=== PATIENT | male | born 1945 | race Caucasian/White ===

== ENCOUNTER 2017-07-20 23:00 | Inpatient (IN) | payer OTHER ==
[~2017-07-20] VITALS: Ht 170.2 cm; Wt 112.5 kg
--- NOTE | 2017-07-20 23:08 | ED DYSPNEA/ASTHMA COMPLAINT ---
History of Present Illness General Chief Complaint: Dyspnea (COPD, CHF, Other) Stated Complaint: BIBA SOB Source: patient, old records, EMS Exam Limitations: no limitations Vital Signs & Intake/Output Vital Signs & Intake/Output Vital Signs Date Time Temp Pulse Resp B/P B/P Pulse O2 O2 Flow FiO2 Mean Ox Delivery Rate 07/21 0157 100.4 90 20 134/63 93 Nasal 3.0L Cannula 07/21 0126 93 Nasal 3.0L Cannula 07/20 2335 97 Nasal 3.0L Cannula 07/20 231 94 Nasal 3.0L Cannula 07/20 2310 99.9 100 24 141/71 94 Nasal 3.0L Cannula ED Intake and Output 07/21 0000 07/20 1200 Intake Total 0 Output Total 0 Balance 0 Intake, Oral 0 Output, Urine 0 Allergies Coded Allergies: No Known Allergies (07/21/17) Triage Nurses Notes Reviewed? yes Onset: Abrupt Duration: day(s): (1), constant Timing: recent history Severity: moderate Activities at Onset: activity Prior Episodes/Possible Cause: no prior episodes Associated Symptoms: cough HPI: 71-year-old male with history of coronary artery disease hypertension presents to the ER for evaluation complaining of shortness of breath unable to catch his breath and wheezing for the past one day associated with a nonproductive cough for the past few days. He denies any fever chills chest pain. Patient has no underlying lung disease asthma he does not smoke. He quit smoking 2 months ago. No sick contacts no leg swelling. No modifying factors or associated symptoms otherwise. No hemoptysis. 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 see below for history Cardiovascular: CAD, hypertension, hyperlipidemia Surgical History Surgical History: non-contributory Psychosocial History Tobacco Use: Quit >30 days ago Family History Hx Contributory? No (Jadiel Rosenberg) Review of Systems Review of Systems Constitutional: Reports: see HPI. Comments Review of systems: See HPI, All other systems negative. Constitutional, no chills no fever, no malaise HEENT: no sore throat no congestion Cardiovascular: No chest pain , no palpitation Skin: no rashes, no change in skin Respiratory: dyspnea cough no sputum GI: No nausea no vomiting, no diarrhea : No dysuria No hematuria, no frequency Muscle skeletal: No joint pain, no back pain Neurologic: , no headache Psych: No stress Heme/endocrine: No bruising (Jadiel Rosenberg) Physical Exam Physical Exam General Appearance: well developed/nourished Respiratory: normal breath sounds, wheezing Comments: Well-developed well-nourished person in no acute distress HEENT: Normal EENT exam; PERRL, EOMI, HEAD is atraumatic. moist mucous membranes. Neck: Supple, normal range of motion Back: Full range of motion Cardiovascular: Regular rate and rhythms no murmurs rub Respiratory: Chest nontender.There were no bony deformities, no asymmetry. No respiratory distress. Patient speaking in full complete sentences. Wheezing in all lung parekh no rhonchi no rales Abdomen: Soft, nontender nondistended Extremity: No edema, full range of motion of extremities Neuro: Alert oriented x3, motor sensory normal, There were no obvious focal neurologic abnormalities. Skin: No appreciable rash on exposed skin, skin is warm and dry. Psych: Mood and affect is normal, memory and judgment is normal. Core Measures ACS in differential dx? Yes CVA/TIA Diagnosis No Sepsis Present: No Sepsis Focused Exam Completed? No (Jadiel Rosenberg) Progress Differential Diagnosis: asthma, AMI, bronchitis, CHF, COPD, musculoskeletal pain , pericarditis, pulmonary embolism, pneumonia, unstable angina Plan of Care: Orders Procedure Date/time Status Nothing by Mouth 07/21 B Active Patient Data 07/218 Active Saline Lock 07/21 127 Active Misc Message 07/21 127 Active ED Holding Orders 07/21 127 Active Admit to inpatient 07/21 0128 Active Vital Signs 07/21 0128 Active Code Status 07/21 0128 Active Add-on Test (ER Only) 07/21 0025 Active D-DIMER 07/20 2335 Complete B-TYPE NATRIURETIC PEP (BNP) 07/20 2335 Complete Add-on Test (ER Only) 07/20 2329 Active Telemetry/Criminal Defense Attorney 07/20 230 Active RAPID VIRAL INFLUENZA A 07/20 2306 Complete TROPONIN LEVEL 07/20 2306 Complete PROTHROMBIN TIME 07/20 2306 Complete COMPREHENSIVE METABOLIC PANEL 07/20 2306 Complete CBC WITHOUT DIFFERENTIAL 07/20 2306 Complete EKG 07/20 2306 Active Current Medications Sig/Antonio Start time Last Medication Dose Stop Time Status Admin Azithromycin 500 MG ONCE ONE 07/21 0130 AC 07/21 (Zithromax) 07/21 0229 0155 Dextrose/Water 250 ML (D5W) Laboratory Tests 07/20/17 2335: Anion Gap 15, Estimated GFR > 60, BUN/Creatinine Ratio 25.6 H, Glucose 128 H, Calcium 9.5, Total Bilirubin 0.5, AST 28, ALT 26, Alkaline Phosphatase 58, Troponin I < 0.01, Jhi-H-Kwvopxlyxvl Pept 76.4, Total Protein 7.1, Albumin 4.3, Globulin 2.8, Albumin/Globulin Ratio 1.5, PT 12.1, INR 1.15, D-Dimer High Sensitivty 276 H, CBC w Diff NO MAN DIFF REQ, RBC 4.36 L, MCV 92.4, MCH 30.6, MCHC 33.1, RDW 13.9, MPV 9.0, Gran % 81.0 H, Lymphocytes % 10.3 L, Monocytes % 8.5, Eosinophils % 0.1, Basophils % 0.1, Absolute Granulocytes 10.2 H, Absolute Lymphocytes 1.3, Absolute Monocytes 1.1 H, Absolute Eosinophils 0, Absolute Basophils 0 Microbiology 07/21 0018 NASOPHARYN: Influenza Virus A & B Rapid Smear - COMP DuoNeb ordered patient medicated Solu-Medrol 125 IV labs ordered chest X ordered case discussed Dr. Sullivan agrees with plan PT reports to feeling improved after duoneb, noted imporvement in wheezing. 105-i d/w the pt at lenght all of his labs todate, i attempte dto titrrate the pt down off 3l to room air and pt immediately became symptomatic and sats dropped to 89%. pending d-dimer CASE D/W DR NARVAEZ WILL ADMIT, AZTIHRO 500MG IV ORDERED AGE ADJUSTED DDIMER NEG Diagnostic Imaging: Viewed by Me: Radiology Read. Discussed w/RAD: Radiology Read. Radiology Impression: PATIENT: RORY FREITAS PRESENT AGE: 71 PATIENT ACCOUNT NO: [id number] : 46 LOCATION: [facility] ORDERING PHYSICIAN: Jadiel LÓPEZ SERVICE DATE: 07/20/17 EXAM TYPE: RAD - XRY- PORTABLE CHEST XRAY EXAMINATION: XR PORTABLE CHEST CLINICAL INFORMATION: Dyspnea COMPARISON: 03/20/2012 TECHNIQUE: Portable frontal view of the chest was obtained. FINDINGS: Lung volumes are symmetric. No focal consolidation is seen. No evidence of pneumothorax, pleural effusion, or pulmonary edema. The cardiomediastinal contour is unremarkable. There is chronic appearing deformity of the posterolateral right fifth rib. IMPRESSION: No acute cardiopulmonary findings. DICTATED BY: Booker Smith MD DATE/TIME DICTATED:07/21/1749 HAND ICER:PADMINI DATE/TIME TRANSCRIBED:07/21/1749 CONFIDENTIAL, DO NOT COPY WITHOUT APPROPRIATE AUTHORIZATION. <Electronically signed in Other Vendor System> SIGNED BY: Booker Smith MD 07/21/1754 Initial ED EKG: normal intervals, normal p-waves, normal QRS complex, normal sinus rhythm Rhythm Strip: normal sinus rhythm (Jadiel Rosenberg) Departure Departure Time of Disposition: 127 Disposition: STILL A PATIENT Condition: Stable Clinical Impression Primary Impression: Dyspnea Qualifiers: Dyspnea type: shortness of breath Qualified Code: R06.02 - Shortness of breath Secondary Impressions: Bronchitis Referrals: Herbert PIPER,Navi Ca (PCP/Family) Departure Forms: Customer Survey General Discharge Information Admission Note Spoke With: Brittany Narvaez MD Documentation of Exam: Documentation of any treatments & extenuating circumstances including Concerns Regarding Discharge (functional status, medication knowledge or non-compliance, living conditions, etc.) that warrant an admission rather than observation: PULM CONSULT, IV STEROIDS, RESP TX PRN, PREMATURE DISCHARGE MEDICALLY HARMFUL, PT HYPOXIC ON BASELINE ROOM AIR (Jadiel Rosenberg) PA/ADVERTISING ASSISTANT Co-Sign Statement Statement: ED Attending supervision documentation- [X] I saw and evaluated the patient. I have also reviewed all the pertinent lab results and diagnostic results. I agree with the findings and the plan of care as documented in the PA's/ADVERTISING ASSISTANT's documentation. 07/21/17, 2:03AM... PT WITH WHEEZING/HYPOXIA, NOW RESTING COMFORTABLY AND STABLE ON SUPPLEMENTAL NC 02. PT STABLE FOR GEN MED AT PRESENT. [] I have reviewed the ED Record and agree with the PA's/ADVERTISING ASSISTANT's documentation. [] Additions or exceptions (if any) to the PAs/ADVERTISING ASSISTANT's note and plan are summarized below: [] (Nate PIPER,Paco Basilio) Critical Care Note Critical Care Note Critical Care Time: non-applicable (Jadiel Rosenberg)
[2017-07-21 00:07] LABS: ABSOLUTE BASOPHIL COUNT 0 /CUMM (0.0-0.2); ABSOLUTE EOSINOPHIL COUNT 0 /CUMM (0.0-0.7); ABSOLUTE GRANULOCYTE CT 10.2 /CUMM (1.4-6.5); ABSOLUTE LYMPH COUNT 1.3 /CUMM (1.2-3.4); ABSOLUTE MONOCYTE COUNT 1.1 /CUMM (0.10-0.60); BASOPHIL % 0.1 % (0.0-2.0); EOSINOPHIL % 0.1 % (0-5); HEMATOCRIT 40.3 % (42-52); MEAN CORPUSCULAR HGB 30.6 PG (27.0-31.0); MEAN CORPUSCULAR HGB CONC 33.1 G/DL (33.0-37.0); MEAN CORPUSCULAR VOLUME 92.4 FL (80.0-94.0); RBC DISTRIBUTION WIDTH 13.9 % (11.5-14.5); RED BLOOD CELL CT 4.36 /CUMM (4.70-6.10); WHITE BLOOD CELL COUNT 12.6 /CUMM (4.8-10.8)
[2017-07-21 00:47] LABS: PLATELET COUNT 121 /CUMM (130-400)
--- NOTE | 2017-07-21 00:55 | RADIOLOGY REPORT ---
EXAMINATION: XR PORTABLE CHEST CLINICAL INFORMATION: Dyspnea COMPARISON: 03/20/2012 TECHNIQUE: Portable frontal view of the chest was obtained. FINDINGS: Lung volumes are symmetric. No focal consolidation is seen. No evidence of pneumothorax, pleural effusion, or pulmonary edema. The cardiomediastinal contour is unremarkable. There is chronic appearing deformity of the posterolateral right fifth rib. IMPRESSION: No acute cardiopulmonary findings.
[2017-07-21 01:22] LABS: PT 12.1 SEC (9.4-12.5)
--- NOTE | 2017-07-21 02:51 | History & Physical ---
Raymond PIPER,[facility] 07/21/17 0250: General Information and HPI MD Statement: I have seen and personally examined RORY DAVIDSON and documented this H&P. The patient is a 71 year old M who presented with a patient stated chief complaint of [shortness of breath]. Source of Information: patient, old records Exam Limitations: no limitations History of Present Illness: Mr. Davidson is a 71 year old male with past medical history significant for coronary artery disease , smoking 20 ppd, hypertension who presented to ED with chief complaint of shortness of breath. Patient reported that for the last 3 days he has been getting short of breath mainly on ambulation, productive cough of clear phlegm, chills but denied any fever. Patient denied any chest pain, heart racing. His symptoms preceded by congested nose for 2 days. Denied any sick contact. He had flu and pneumonia vaccines this season. Patient denied any weight loss, lower extremity swelling, abdominal pain, nausea or vomiting, joint pain, muscle ache. Last night he felt very short of breath and called EMS. Denied orthopnea or paroxysmal nocturnal dyspnea. Allergies/Medications Allergies: Coded Allergies: No Known Allergies (07/21/17) Past History Travel History Traveled to [place] past 21 day No Medical History Cardiovascular: CAD, hypertension, hyperlipidemia Surgical History Surgical History: non-contributory Review of Systems Review of Systems Constitutional: Reports: see HPI, chills. Denies: fever, malaise, weakness. EENTM: Denies: blurred vision. Cardiovascular: Denies: chest pain, orthopena. Respiratory: Reports: cough, short of breath. GI: Denies: abdominal pain, constipation. Genitourinary: Denies: dysuria. Musculoskeletal: Denies: joint pain, joint swelling. Skin: Denies: rash. Exam & Diagnostic Data Last 24 Hrs of Vital Signs/I&O Vital Signs Date Time Temp Pulse Resp B/P B/P Pulse O2 O2 Flow FiO2 Mean Ox Delivery Rate 07/21 0636 Nasal 3.0L Cannula 07/21 0609 99.8 84 20 120/68 95 Nasal 3.0L Cannula 07/21 0452 98.1 85 20 120/59 93 Nasal 3.0L Cannula 07/21 0157 100.4 90 20 134/63 93 Nasal 3.0L Cannula 07/21 0126 93 Nasal 3.0L Cannula 02/11 2335 97 Nasal 3.0L Cannula 07/20 2310 94 Nasal 3.0L Cannula 07/20 2310 99.9 100 24 141/71 94 Nasal 3.0L Cannula Intake & Output 07/21 1600 07/21 0800 07/21 0000 Intake Total 0 Output Total 0 Balance 0 Intake, Oral 0 Output, Urine 0 Patient 112.491 kg Weight Weight Reported by Patient Measurement Method Physical Exam General Appearance Alert, Oriented X3, Cooperative, No Acute Distress Skin No Rashes, No Breakdown Skin Temp/Moisture Exam: Warm/Dry HEENT Atraumatic, PERRLA, EOMI, Mucous Membr. moist/pink Neck Supple Lymphatic no cervical lymphadenopathy Cardiovascular Regular Rate, Normal S1, Normal S2, No Murmurs Lungs basal wheeze Abdomen Normal Bowel Sounds, Soft, No Tenderness Neurological Normal Speech, Strength at 5/5 X4 Ext, Normal Tone, Sensation Intact, Cranial Nerves 3-12 NL, Reflexes 2+ Extremities No Clubbing, No Cyanosis, Normal Pulses, No Tenderness/Swelling, Bilateral trace pedal edema Last 24 Hrs of Labs/Kristofer: Laboratory Tests 07/21/17 0710: PT 12.0, INR 1.14 07/21/17 0608: Anion Gap 16, Estimated GFR > 60, BUN/Creatinine Ratio 27.5 H, Hemoglobin A1c Pending, TSH 0.767, Free T4 1.01, CBC w Diff MAN DIFF ORDERED, RBC 4.28 L, MCV 92.9, MCH 30.2, MCHC 32.5 L, RDW 13.6, MPV 8.3, Gran % 93.1 H, Lymphocytes % 4.8 L, Monocytes % 2.1, Eosinophils % 0, Basophils % 0, Absolute Granulocytes 10.2 H, Segmented Neutrophils 79 H, Band Neutrophils 13 H, Absolute Lymphocytes 0.5 L, Lymphocytes 6 L, Monocytes 2, Absolute Monocytes 0.2, Absolute Eosinophils 0, Absolute Basophils 0, Platelet Estimate ADEQUATE, Normocytic RBCs VERIFIED, Normochromic RBCs VERIFIED 07/20/172334: Anion Gap 15, Estimated GFR > 60, BUN/Creatinine Ratio 25.6 H, Glucose 128 H, Calcium 9.5, Total Bilirubin 0.5, AST 28, ALT 26, Alkaline Phosphatase 58, Troponin I < 0.01, Cjw-K-Mwrrzafiomm Pept 76.4, Total Protein 7.1, Albumin 4.3, Globulin 2.8, Albumin/Globulin Ratio 1.5, PT 12.1, INR 1.15, D-Dimer High Sensitivty 276 H, CBC w Diff NO MAN DIFF REQ, RBC 4.36 L, MCV 92.4, MCH 30.6, MCHC 33.1, RDW 13.9, MPV 9.0, Gran % 81.0 H, Lymphocytes % 10.3 L, Monocytes % 8.5, Eosinophils % 0.1, Basophils % 0.1, Absolute Granulocytes 10.2 H, Absolute Lymphocytes 1.3, Absolute Monocytes 1.1 H, Absolute Eosinophils 0, Absolute Basophils 0 Microbiology 07/21 0600 LOWER RESP: Respiratory Culture - COLB 07/21 0600 LOWER RESP: Gram Stain - COLB 07/21 0018 NASOPHARYN: Influenza Virus A & B Rapid Smear - COMP Diagnostic Data CXR Results IMPRESSION: No acute cardiopulmonary findings. Assessment/Plan Assessment: Mr. Davidson is a 71 year old male with past medical history significant for coronary artery disease , smoking 20 ppd, hypertension who presented to ED with chief complaint of shortness of breath. Problem list Acute hypoxic respiratory failure Acute bronchitis COPD exacerbation, never diagnosed before Smoking COPD Plan Admit to general medical floor Azithromycin Solu-Medrol 40 every 8 Pulmonary consultation Smoking cessation counseling Nicotine patch Blood and sputum culture Follow up CBC in a.m. Coagulation profile Code full DVT prophylaxis Alps for thrombocytopenia As Ranked By This Provider Problem List: 1. Bronchitis 2. Dyspnea Qualifiers Dyspnea type: shortness of breath Qualified Code: R06.02 - Shortness of breath Core Measures/Misc (02/23) Acute Coronary Syndrome ACS Diagnosis: No Congestive Heart Failure Congestive Heart Failure Diagnosis No Cerebrovascular Accident CVA/TIA Diagnosis: No VTE (View Protocol) VTE Risk Factors Age>40 No Mechanical VTE Prophylaxis d/t N/A MechProphylax Ordered No VTE Pharm Prophylaxis d/t Platelets below ref range Sepsis (View protocol) Sepsis Present: No Rasheed PIPER, [facility] 07/21/17 0321: General Information and HPI Allergies/Medications Home Med list Aspirin (Aspirin*) 325 MG TABLET 1 TAB PO DAILY HEART HEALTH (Reported) Lisinopril 5 MG TABLET 1 TAB PO DAILY HIGH BLOOD PRESSURE (Reported) Metoprolol Succ XL (Toprol XL) 25 MG TAB 1 TAB PO DAILY HIGH BLOOD PRESSURE ( Reported) Rosuvastatin Calcium (Crestor) 10 MG TABLET 1 TAB PO DAILY HIGH CHOLESTROL ( Reported) Attending MD Review Statement Attending Statement Attending MD Statement: examined this patient, discuss w/resident/PA/COACH WIRER, agreed w/resident/PA/COACH WIRER, reviewed images, amended to note Attending Assessment/Plan: 71 yo M with h/o HTN, CAD s/p OK, current smoker (quit 2 months back but started again), is here for evaluation of difficulty breathing ("I could not catch my breath"), wheezing and productive cough. Patient reports he has had 'head cold', congestion for the past 3 days. He denies fevers, chills, chest pain, lightheadedness or palpitations. No sick contacts. Received flu vaccine last year. He has no definitive diagnosis of asthma or COPD, and has never seen a Apartment Locator. Patient is scheduled for colonoscopy today Jul 21 and had started taking the oral prep, after which his symptoms seem to have gotten worse. Vitals: Tmax 100.4, HR 90-100's, BP 134/63, sats 89% on RA --> 93% on 3L. Exam: AAO, in no distress, able to speak in full sentences, Chest b/l reduced air entry with expiratory wheezes++, Heart S1S2 regular, LE no edema. Labs: WBC 12.6, Plt 121, D-dimer 276, BUN 23, glucose 128, trop neg. Rapid flu is negative. CXR: no acute findings. Chronic appearing deformity of posterolateral right fifth rib. EKG: sinus tachycardia, PVC's. Assessment and plan: 1. Acute hypoxic respiratory failure 2. COPD exacerbation, no evidence of pneumonia 3. Smoker 4. h/o CAD s/p OK 5. Thrombocytopenia - Admit to General medicine - [facility] nebs, sputum culture - IV solumedrol 40 Q8 - IV azithromycin daily for 5 days - Gently hydration - Counseling for smoking cessation, nicotine patch - Check HbA1c, TSH, free T4. - If persistent tachycardia and hypoxia, consider CTA to rule out PE. D-dimer age adjusted in negative. - Outpatient follow up with Pulm for PFT's - Check urinalysis and urine tox screen - Continue aspirin, lisinopril, metoprolol and statin - Watch platelet counts. Check INR/PT. DVT ppx Alps. Full code.
[2017-07-21] MEDS ORDERED: TOPROL XL25 M1 PO (03:00)
[2017-07-21] MEDS ORDERED: LISINOPRIL5 M1 PO (03:00)
[2017-07-21] MEDS ORDERED: ASPIRIN325 M2 PO (03:01)
[2017-07-21] MEDS ORDERED: CRESTOR10 M1 PO (03:01)
--- NOTE | 2017-07-21 03:21 | Admission Certification ---
Admission Certification Certification Statement - As attending physician, I certify that at the time of - admission, based on clinical presentation, severity of - symptoms, need for further diagnostic testing and - therapeutic interventions, and risk of adverse outcomes - without in-hospital treatment, in my clinical assessment, - this patient requires an acute hospital stay for a minimum - of two nights or longer. I have also considered psychsocial - factors such as support system, advanced age, financial - issues, cognitive issues, and failed out-patient treatments, - past re-admission history, safety of patient, and lack of - compliance as applicable. Specific rationale supporting this admission is: Acute hypoxic respiratory failure, COPD exacerbation.
[2017-07-21 06:20] LABS: ABSOLUTE BASOPHIL COUNT 0 /CUMM (0.0-0.2); ABSOLUTE EOSINOPHIL COUNT 0 /CUMM (0.0-0.7); ABSOLUTE GRANULOCYTE CT 10.2 /CUMM (1.4-6.5); ABSOLUTE LYMPH COUNT 0.5 /CUMM (1.2-3.4); ABSOLUTE MONOCYTE COUNT 0.2 /CUMM (0.10-0.60); BASOPHIL % 0 % (0.0-2.0); EOSINOPHIL % 0 % (0-5); GRANULOCYTE % 93.1 % (42.2-75.2); HEMATOCRIT 39.8 % (42-52); MEAN CORPUSCULAR HGB 30.2 PG (27.0-31.0); MEAN CORPUSCULAR HGB CONC 32.5 G/DL (33.0-37.0); MEAN CORPUSCULAR VOLUME 92.9 FL (80.0-94.0); MEAN PLATELET VOLUME 8.3 FL (7.4-10.4); PLATELET COUNT 137 /CUMM (130-400); RBC DISTRIBUTION WIDTH 13.6 % (11.5-14.5); RED BLOOD CELL CT 4.28 /CUMM (4.70-6.10); WHITE BLOOD CELL COUNT 10.9 /CUMM (4.8-10.8)
[2017-07-21 07:30] VITALS: BP 120/68
--- NOTE | 2017-07-21 12:07 | PN- Att Addend ---
Attending Addendum Attending Brief Note Patient seen and examined, not feeling better. Continues to complain of shortness of breath and continues to require 3 L of oxygen. Patient desatted and taper down to 2 L to 87%. Vital Signs Date Time Temp Pulse Resp B/P B/P Pulse O2 O2 Flow FiO2 Mean Ox Delivery Rate 07/21 1025 Nasal 4.0L Cannula 07/21 1025 92 Nasal 4.0L Cannula 07/21 0958 92 Nasal 3.0L Cannula 07/21 0941 84 120/68 07/21 0941 84 120/68 07/21 0930 91 Nasal 2.0L Cannula 07/21 0730 98.8 84 22 120/68 92 Nasal 3.0L Cannula 07/21 0636 Nasal 3.0L Cannula 07/21 0609 99.8 84 20 120/68 95 Nasal 3.0L Cannula 07/21 0452 98.1 85 20 120/59 93 Nasal 3.0L Cannula 07/21 0157 100.4 90 20 134/63 93 Nasal 3.0L Cannula 07/21 0126 93 Nasal 3.0L Cannula 07/20 2335 97 Nasal 3.0L Cannula 07/20 2311 94 Nasal 3.0L Cannula 07/20 2311 99.9 100 24 141/71 94 Nasal 3.0L Cannula on exam; aox3, nad. cv: s1,s2, rrr resp; mild scattered wheeze. abd; soft, nt, bs+ ext; no edema Laboratory Tests 07/21 07/21 0710 0608 Chemistry Sodium (137 - 145 mmol/L) 142 Potassium (3.5 - 5.1 mmol/L) 4.2 Chloride (98 - 107 mmol/L) 104 Carbon Dioxide (22 - 30 mmol/L) 23 Anion Gap (5 - 16) 16 BUN (9 - 20 mg/dL) 22 H Creatinine (0.7 - 1.2 mg/dL) 0.8 Estimated GFR (>60 ml/min) > 60 BUN/Creatinine Ratio (7 - 25 %) 27.5 H Hemoglobin A1c (4.2 - 5.8 %) 5.4 TSH (0.270 - 4.200 uIU/mL) 0.767 Free T4 (0.78 - 2.44 ng/dL) 1.01 Coagulation PT (9.4 - 12.5 SEC) 12.0 INR (0.90 - 1.17) 1.14 Hematology CBC w Diff MAN DIFF ORDERED WBC (4.8 - 10.8 /CUMM) 10.9 H RBC (4.70 - 6.10 /CUMM) 4.28 L Hgb (14.0 - 18.0 G/DL) 12.9 L Hct (42 - 52 %) 39.8 L MCV (80.0 - 94.0 FL) 92.9 MCH (27.0 - 31.0 PG) 30.2 MCHC (33.0 - 37.0 G/DL) 32.5 L RDW (11.5 - 14.5 %) 13.6 Plt Count (130 - 400 /CUMM) 137 MPV (7.4 - 10.4 FL) 8.3 Gran % (42.2 - 75.2 %) 93.1 H Lymphocytes % (20.5 - 51.1 %) 4.8 L Monocytes % (1.7 - 9.3 %) 2.1 Eosinophils % (0 - 5 %) 0 Basophils % (0.0 - 2.0 %) 0 Absolute Granulocytes (1.4 - 6.5 /CUMM) 10.2 H Segmented Neutrophils (42.2 - 75.2 %) 79 H Band Neutrophils (0.0 - 5.0 %) 13 H Absolute Lymphocytes (1.2 - 3.4 /CUMM) 0.5 L Lymphocytes (20.5 - 51.1 %) 6 L Monocytes (1.7 - 9.3 %) 2 Absolute Monocytes (0.10 - 0.60 /CUMM) 0.2 Absolute Eosinophils (0.0 - 0.7 /CUMM) 0 Absolute Basophils (0.0 - 0.2 /CUMM) 0 Platelet Estimate (ADEQUATE) ADEQUATE Normocytic RBCs VERIFIED Normochromic RBCs VERIFIED 07/20 5025 Chemistry Sodium (137 - 145 mmol/L) 143 Potassium (3.5 - 5.1 mmol/L) 4.3 Chloride (98 - 107 mmol/L) 103 Carbon Dioxide (22 - 30 mmol/L) 25 Anion Gap (5 - 16) 15 BUN (9 - 20 mg/dL) 23 H Creatinine (0.7 - 1.2 mg/dL) 0.9 Estimated GFR (>60 ml/min) > 60 BUN/Creatinine Ratio (7 - 25 %) 25.6 H Glucose (65 - 99 mg/dL) 128 H Calcium (8.4 - 10.2 mg/dL) 9.5 Total Bilirubin (0.2 - 1.3 mg/dL) 0.5 AST (17 - 59 U/L) 28 ALT (21 - 72 U/L) 26 Alkaline Phosphatase (< 127 U/L) 58 Troponin I (<0.11 ng/ml) < 0.01 Sle-C-Vefrrzoebfk Pept (<125 pg/mL) 76.4 Total Protein (6.3 - 8.2 g/dL) 7.1 Albumin (3.5 - 5.0 g/dL) 4.3 Globulin (1.9 - 4.2 gm/dL) 2.8 Albumin/Globulin Ratio (1.1 - 2.2 %) 1.5 Coagulation PT (9.4 - 12.5 SEC) 12.1 INR (0.90 - 1.17) 1.15 D-Dimer High Sensitivty (0 - 243 ng/ml) 276 H Hematology CBC w Diff NO MAN DIFF REQ WBC (4.8 - 10.8 /CUMM) 12.6 H RBC (4.70 - 6.10 /CUMM) 4.36 L Hgb (14.0 - 18.0 G/DL) 13.3 L Hct (42 - 52 %) 40.3 L MCV (80.0 - 94.0 FL) 92.4 MCH (27.0 - 31.0 PG) 30.6 MCHC (33.0 - 37.0 G/DL) 33.1 RDW (11.5 - 14.5 %) 13.9 Plt Count (130 - 400 /CUMM) 121 L MPV (7.4 - 10.4 FL) 9.0 Gran % (42.2 - 75.2 %) 81.0 H Lymphocytes % (20.5 - 51.1 %) 10.3 L Monocytes % (1.7 - 9.3 %) 8.5 Eosinophils % (0 - 5 %) 0.1 Basophils % (0.0 - 2.0 %) 0.1 Absolute Granulocytes (1.4 - 6.5 /CUMM) 10.2 H Absolute Lymphocytes (1.2 - 3.4 /CUMM) 1.3 Absolute Monocytes (0.10 - 0.60 /CUMM) 1.1 H Absolute Eosinophils (0.0 - 0.7 /CUMM) 0 Absolute Basophils (0.0 - 0.2 /CUMM) 0 A/P; 71 yo M with h/o HTN, CAD s/p PR, current smoker, admitted with sob, significant hypoxia, acute bronchitis. Patient currently getting treated with azithro, solumedrol, TRC nebs. Hypoxia is dispropotionate to the clinical picture. Although ddimer low, but westill need to do chest CTA to r/u PE for significant hypoxia. Continue the rest of the medications. DVT prophylaxis: If PE is ruled out then we can start the patient on Lovenox for DVT prophylaxis. Platelet count is improving.
--- NOTE | 2017-07-21 13:55 | CT SCAN REPORT ---
EXAMINATION: CT ANGIOGRAM OF THE CHEST WITH CONTRAST (CT PULMONARY ANGIOGRAM FOR PE) CLINICAL INFORMATION: Tachycardia and hypoxia. Evaluate for pulmonary embolism. COMPARISON: CXR from 07/20/2017 TECHNIQUE: Prior to contrast administration, noncontrast localization images were obtained. Subsequently, multidetector volumetric imaging was performed from the thoracic inlet to below the diaphragms following the administration of 125 mL Optiray 350 intravenous contrast. No contrast reaction reported. Sagittal, coronal, and MIP oblique sagittal reformatted images were obtained on the CT workstation, uploaded to PACS, and reviewed. DLP: Total exam dose-length product 569 mGy-cm FINDINGS: QUALITY OF STUDY/CONTRAST BOLUS: The quality of the contrast bolus is not optimal. The attenuation of the pulmonary artery trunk is 190 HU (ideally would be > 200 HU) , and pulmonary veins have higher attenuation than pulmonary arteries in the lower lobes. PULMONARY ARTERIES: The pulmonary artery trunk is 2.7 cm in transverse diameter. Pulmonary arteries are normal in size. No embolic filling defects are identified within the main, lobar or segmental vessels. THORACIC AORTA: There is extensive atherosclerosis of the thoracic aorta without aneurysm or dissection. LUNGS AND PLEURA: Trachea and mainstem bronchi are widely patent and normal in caliber. There is wall thickening of segmental and subsegmental bronchi in both lungs with scattered endobronchial secretions. Findings are consistent with inflammation of the airways. Also, there are clustered tree-in-bud nodules in the lingula, suspicious for infectious bronchiolitis. Mild patchy groundglass opacity is seen in the anterior right lower lobe (images [id number], series 2) and within the anterior left lower lobe (image 377, series 2), suggestive of mild pneumonitis. There are small, calcified granulomas in the lingula and left lower lobe. No pneumothorax or pleural effusion. CARDIOVASCULAR: The heart size is normal. [id number] atherosclerotic calcification of coronary arteries. No evidence of inward bowing of the interventricular septum. No pericardial effusion. MEDIASTINUM: The esophagus has normal wall thickness. The thyroid gland is unremarkable. No mediastinal mass. LYMPHATICS: No pathologic sized axillary, hilar or mediastinal lymph nodes. UPPER ABDOMEN: No acute findings. No reflux of contrast into the IVC and hepatic veins. Scattered diverticula of the visualized colon. OSSEOUS STRUCTURES: No aggressive osseous lesions in the degenerated spine. IMPRESSION: 1. No evidence of pulmonary embolism. However, the quality of the contrast bolus is not optimal. If there is a high clinical suspicion, then consider obtaining lower extremity venous ultrasound. 2. Bronchial khoury are thickened and there are scattered endobronchial secretions. Also, tree-in-bud nodules are present within the lingula, consistent with infectious bronchiolitis. Small patches of groundglass opacity in lower lobes, suspicious for pneumonitis. No pleural effusion or lymphadenopathy. 3. Atherosclerosis of coronary arteries and thoracic aorta without aortic aneurysm.
[2017-07-21 15:29] VITALS: BP 126/68
--- NOTE | 2017-07-21 20:11 | ULTRASOUND REPORT ---
EXAMINATION: RENAL ULTRASOUND CLINICAL INFORMATION: Hematuria. COMPARISON: None. TECHNIQUE: Real-time imaging of the kidneys and bladder. FINDINGS: RIGHT KIDNEY: There is neither hydronephrosis nor nephrolithiasis. The right kidney measures 12.3 cm. LEFT KIDNEY: There is neither hydronephrosis nor nephrolithiasis. The left kidney measures 11.9 cm. BLADDER: The urinary bladder is partially filled. There is a lobular mass along the posterior urinary bladder wall measuring approximately 4.3 x 3.5 x 3.5 cm with vascularity. The prevoid volume is 193 mL. There is a post void residual of 68 mL. There is no wall thickening. There is no pelvic free fluid. IMPRESSION: Neither hydronephrosis nor nephrolithiasis. Lobulated urinary bladder mass suspicious as representing the etiology for the patient's hematuria. Recommendation is for cystoscopy.
[2017-07-21 21:57] VITALS: BP 118/56
[2017-07-22 06:13] VITALS: BP 124/80
--- NOTE | 2017-07-22 07:13 | PN- Housestaff ---
Subjective Follow-up For: Hematuria PNA Subjective: Seen and examined at bedside resting comfortably. He reports his breathing his much better. O/n event of positive u/s finding of bladder mass was communicated to sidney. He still endorses intermittent hematuria. Denies any pain, or fever. Review of Systems Constitutional: Reports: see HPI. Objective Last 24 Hrs of Vital Signs/I&O Vital Signs Date Time Temp Pulse Resp B/P B/P Pulse O2 O2 Flow FiO2 Mean Ox Delivery Rate 07/22 2007 96 Nasal 4.0L Cannula 07/22 1407 98.4 63 20 118/60 99 Aerosol Mask 07/22 904 91 Nasal 3.5L Cannula 07/22 09 80 126/82 07/22 0900 80 126/82 07/22 08 93 Nasal 4.0L Cannula 07/22 799 93 Nasal 4.0L Cannula 07/22 612 98.1 71 16 124/80 94 07/22 0000 95 Nasal 4.0L Cannula 07/22 0000 95 Nasal 4.0L Cannula Intake & Output 07/22 1600 07/22 0800 07/22 0000 Intake Total 836 967 1083 Output Total Balance 514 076 2540 Intake, IV 100 310 400 Intake, Oral 800 600 Physical Exam General Appearance: Alert, Oriented X3, Cooperative Skin: No Significant Lesion Lymphatic: Cervical nl Cardiovascular: Regular Rate, Normal S1, Normal S2 Lungs: Clear to Auscultation, Normal Air Movement Abdomen: Normal Bowel Sounds, Soft, No Tenderness Assessment/Plan Assessment: 71 year old male with past medical history significant for coronary artery disease, smoking 20 ppd, hypertension who presented to ED with chief complaint of shortness of breath. Urine strept antigen was positive.Pt also reported hematuria for about 2 weeks, an u/s obtained was positive for a bladder mass. Impression PNA with isolated strept pneumo antigen Hematuria (during admission and the following day, patient had not informed the medical team about his 2 week hc of hematuria, he did however notify the nursing staff on 07/21 who notified Bladder mass. Given the hx of chronic smoking and now hematuria, high suspicion of malignancy. cytoscopy with biopsyis indicated. Plan Continue with ceftriaxone and switch to AUgmentin on discharge. Discontinue Azithromycin after 3 days of 500mg (sufficient for COPD exacerbation and PNA) Discontinued aspirin, in anticipation of outpatient cystoscopy with biopsy. DVT: ALPS in the setting hematuria Problem List: 1. Hematuria 2. Bladder neoplasm 3. Bronchitis Pain Ratin Pain Location: none Pain Goal: Remain pain free Pain Plan: per pathway Tomorrow's Labs & Rationales: per pathway
[2017-07-22 08:35] LABS: ABSOLUTE BASOPHIL COUNT 0 /CUMM (0.0-0.2); ABSOLUTE EOSINOPHIL COUNT 0 /CUMM (0.0-0.7); ABSOLUTE MONOCYTE COUNT 1.4 /CUMM (0.10-0.60); EOSINOPHIL % 0 % (0-5); MEAN PLATELET VOLUME 9.1 FL (7.4-10.4); RBC DISTRIBUTION WIDTH 14.2 % (11.5-14.5)
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
[2017-07-22 08:58] LABS: ABSOLUTE LYMPH COUNT 1.1 /CUMM (1.2-3.4); BASOPHIL % 0.1 % (0.0-2.0); GRANULOCYTE % 86.6 % (42.2-75.2); HEMATOCRIT 36.7 % (42-52); MEAN CORPUSCULAR HGB CONC 33.2 G/DL (33.0-37.0); MEAN CORPUSCULAR VOLUME 93.2 FL (80.0-94.0); PLATELET COUNT 135 /CUMM (130-400); RED BLOOD CELL CT 3.94 /CUMM (4.70-6.10)
[2017-07-22 09:00] LABS: WHITE BLOOD CELL COUNT 18.5 /CUMM (4.8-10.8)
--- NOTE | 2017-07-22 11:37 | PN- Att Addend ---
Attending Addendum Attending Brief Note Patient seen and examined, continues to feel short of breath. Still requiring significant amount of oxygen. Renal ultrasound shows bladder mass. Patient has been having hematuria since last 2 weeks but on initial evaluation he did not mention to any provider. Nurse notified housestaff about patient having shakir hematuria. CTA chest neg for PE but shows infectious bronchiolitis. Vital Signs Date Time Temp Pulse Resp B/P B/P Pulse O2 O2 Flow FiO2 Mean Ox Delivery Rate 07/22 0905 93 Nasal 3.5L Cannula 07/22 09 80 126/82 07/22 0900 80 126/82 07/22 0800 93 Nasal 4.0L Cannula 07/22 0800 93 Nasal 4.0L Cannula 07/22 0613 98.1 71 16 124/80 94 07/22 0000 95 Nasal 4.0L Cannula 07/22 0000 95 Nasal 4.0L Cannula 07/21 2157 98.6 93 20 118/56 95 07/21 1925 92 Nasal 4.0L Cannula 07/21 1600 92 Nasal 4.0L Cannula 07/21 1600 92 Nasal 4.0L Cannula 07/21 1529 99.0 81 20 126/68 92 Nasal Cannula on exam; aox3, nad. cv; s1,s2, rrr resp; + scattered wheeze. abd; soft, nt, bs+ ext; no edema. Laboratory Tests 07/22 07/22 0644 0610 Chemistry Sodium (137 - 145 mmol/L) 143 Potassium (3.5 - 5.1 mmol/L) 4.7 Chloride (98 - 107 mmol/L) 107 Carbon Dioxide (22 - 30 mmol/L) 24 Anion Gap (5 - 16) 12 BUN (9 - 20 mg/dL) 26 H Creatinine (0.7 - 1.2 mg/dL) 0.8 Estimated GFR (>60 ml/min) > 60 BUN/Creatinine Ratio (7 - 25 %) 32.5 H Hematology CBC w Diff MAN DIFF ORDERED WBC (4.8 - 10.8 /CUMM) 18.5 H RBC (4.70 - 6.10 /CUMM) 3.94 L Hgb (14.0 - 18.0 G/DL) 12.2 L Hct (42 - 52 %) 36.7 L MCV (80.0 - 94.0 FL) 93.2 MCH (27.0 - 31.0 PG) 31.0 MCHC (33.0 - 37.0 G/DL) 33.2 RDW (11.5 - 14.5 %) 14.2 Plt Count (130 - 400 /CUMM) 135 MPV (7.4 - 10.4 FL) 9.1 Gran % (42.2 - 75.2 %) 86.6 H Lymphocytes % (20.5 - 51.1 %) 5.8 L Monocytes % (1.7 - 9.3 %) 7.5 Eosinophils % (0 - 5 %) 0 Basophils % (0.0 - 2.0 %) 0.1 Absolute Granulocytes (1.4 - 6.5 /CUMM) 16.0 H Segmented Neutrophils (42.2 - 75.2 %) 72 Band Neutrophils (0.0 - 5.0 %) 12 H Absolute Lymphocytes (1.2 - 3.4 /CUMM) 1.1 L Lymphocytes (20.5 - 51.1 %) 9 L Monocytes (1.7 - 9.3 %) 7 Absolute Monocytes (0.10 - 0.60 /CUMM) 1.4 H Absolute Eosinophils (0.0 - 0.7 /CUMM) 0 Absolute Basophils (0.0 - 0.2 /CUMM) 0 Platelet Estimate (ADEQUATE) DECREASED Hypochromic-Microcytic 1+ Anisocytosis 1+ 12 1155 Toxicology Urine Opiates Screen (>2000 NG/ML) < 100.00 Methadone Screen (>300 NG/ML) < 40 Barbiturate Screen (>200 NG/ML) < 60 Ur Phencyclidine Scrn (>25 NG/ML) < 6.00 Amphetamines Screen (>1000 NG/ML) < 100 U Benzodiazepines Scrn (>200 NG/ML) < 85 Urine Cocaine Screen (>300 NG/ML) < 50 Urine Cannabis Screen (>50 NG/ML) < 5.00 Urines Urinalysis LIGHT H Urine Color (YEL,AMB,STR) BLDY H Urine Clarity (CLEAR) HAZY H Urine pH (5.0 - 8.0) 6.0 Ur Specific [place] (1.001 - 1.035) 1.015 Urine Protein (NEG,<30 MG/DL) 100 H Urine Ketones (NEG) NEG Urine Nitrite (NEG) NEG Urine Bilirubin (NEG) NEG Urine Urobilinogen (0.1 - 1.0 EU/dl) 0.2 Ur Leukocyte Esterase (NEG) TRACE H Ur Microscopic SEDIMENT EXAMINED Urine RBC (0 - 5 /HPF) PACKD H Urine WBC (0 - 2 /HPF) 1-3 H Urine Bacteria (NEG/NONE) FEW H Urine Hemoglobin (NEG) LARGE H Urine Glucose (N MG/DL) NEG A/P; 71 yo M with h/o HTN, CAD s/p MS, current smoker, admitted with sob, significant hypoxia, with CTA chest showing infectious bronchiolitis and negative pulmonary embolism. Renal ultrasound consistent with bladder mass and patient having shakir hematuria. Urology has been consulted. Patient will require cystoscopy which likely will be done in one week after patient stays off of his aspirin. Patient takes full dose aspirin. Urine strep antigen positive. And respiratory culture growing gram-positive cocci in pairs. Agree with awaiting ceftriaxone. We'll follow-up on the final sputum culture. Awaiting pulmonology evaluation. Continue TRC nebs. DVT px; ALPS secondary to hematuria.
[2017-07-22 14:07] VITALS: BP 118/60
--- NOTE | 2017-07-22 19:44 | Discharge Summary ---
Visit Information Visit Dates Admission Date: 07/21/17 Hospital Course Allergies: Coded Allergies: No Known Allergies (07/21/17) Discharge Instructions Medications at Discharge Discharge Medications: Stop taking the following medications: Lisinopril (Lisinopril) 5 MG TABLET ORAL DAILY Continue taking these medications: Metoprolol Succ XL (Toprol XL) 25 MG TAB 1 Tablet ORAL DAILY Comments: Last Taken: 07/24/17 Time: 10:30 AM Rosuvastatin Calcium (Crestor) 10 MG TABLET 1 Tablet ORAL DAILY Comments: Last Taken: 07/23/17 Time: 5:45 PM (LIPITOR 40MG PO GIVEN) Aspirin (Aspirin*) 325 MG TABLET 1 Tablet ORAL DAILY Instructions: Medication on hold in anticipation for Cystoscopy/TURP. Discuss with urologist when to resume aspirin Comments: Last Taken: 07/21/17 Time: 9:00 AM Start taking the following new medications: Amoxicillin/Potassium Clav (Augmentin 875-125 Tablet) 875 MG-125 MG TABLET 1 Tablet ORAL TWICE DAILY Qty = 8 No Refills Instructions: . Comments: NOT GIVEN IN HOSPITAL Prednisone (Prednisone) 10 MG TABLET 1 Tablet ORAL SEE INSTRUCTIONS Qty = 30 No Refills Instructions: 50 MG X2 DAYS,40MG X2 DAYS, 30MG X2 DAYS, 20 MG X2 DAYS,10MG X2 DAYS, THEN STOP., Comments: Last Taken: 07/24/17 Time: 10:30 AM Tiotropium [place] (Spiriva) 18 MCG CAP.W.DEV 1 Puff Inhale through mouth DAILY Qty = 3 No Refills Comments: Last Taken: 07/24/17 Time: 10:30 AM Losartan Potassium (Losartan Potassium) 25 MG TABLET 25 Milligram ORAL DAILY Qty = 60 No Refills Comments: Last Taken: 07/24/17 Time: 10:30 AM Budesonide/Formoterol Fumarate (Symbicort 160-4.5 Mcg Inhaler) 160 MCG-4.5 MCG/ ACTUATION HFA.AER.AD 2 Puff Inhale through mouth TWICE DAILY Qty = 2 No Refills Comments: Last Taken: 07/24/17 Time: 12:00 PM Albuterol Sulfate (Proair Hfa) 90 MCG HFA.AER.AD 2 Puff Inhale through mouth EVERY 4-6 HOURS NEEDED as needed for COPD Qty = 1 No Refills Comments: NOT GIVEN IN HOSPITAL
[2017-07-22] MEDS ORDERED: AUGMENTIN 875-1 EACH PO (20:18)
[2017-07-22] MEDS ORDERED: PREDNISONE10 M2 PO (20:18)
--- NOTE | 2017-07-22 20:23 | Patient Discharge Instructions ---
Discharge Instructions General Discharge Information You were seen/treated for: BRONCHITIS BLOOD IN URINE Special Instructions: PLEASE STOP TAKING ASPIRIN FOR A WEEK IN ANTICIPATION OF A PROCEDURE BY THE UROLOGIST. DISCUSS WITH UROLOGIST WHEN TO RESUME ASPIRIN CONTACT YOUR PRIMARY CARE ON WHEN TO RESTART YOUR ASPIRIN PLEASE CONTACT DR BRYANT WITHIN A 1-2 DAYS AFTER DISCHARGE TO SCHEDULE A VISIT WITH HIM (HIS CONTACT HAS BEEN PROVIDED FOR YOU) PLEASE FOLLOW UP WITH YOUR PCP WITHIN 1 WEEK Acute Coronary Syndrome Inclusion Criteria At DC or during hospital stay patient has or had the following: ACS DIAGNOSIS No Discharge Core Measures Meds if any: Prescribed or Continued at Discharge Meds if any: NOT Prescribed or Continued at Discharge Congestive Heart Failure Inclusion Criteria At DC or during hospital stay patient has or had the following: CHF DIAGNOSIS No Discharge Core Measures Meds if any: Prescribed or Continued at Discharge Meds if any: NOT Prescribed or Continued at Discharge Cerebrovascular accident Inclusion Criteria At DC or during hospital stay patient has or had the following: CVA/TIA Diagnosis No Discharge Core Measures Meds if any: Prescribed or Continued at Discharge Meds if any: NOT Prescribed or Continued at Discharge Venous thromboembolism Inclusion Criteria VTE Diagnosis No VTE Type NONE VTE Confirmed by (Test) NONE Discharge Core Measures - Per Current guidelines, there needs to be overlap - treatment for the first 5 days of Warfarin therapy. - If discharged on Warfarin prior to 5 days of - overlap therapy, the patient will need to be - assessed for post discharge needs including - *Post discharge parental anticoagulation - *Warfarin and/or parental anticoagulation education - *Follow up date to check INR post discharge At least 5 days overlap therapy as Inpatient No Meds if any: Prescribed or Continued at Discharge Note: Overlap Therapy is Warfarin and Anticoagulant Meds if any: NOT Prescribed or Continued at Discharge
[2017-07-22 23:32] VITALS: BP 112/60
[2017-07-23 06:56] VITALS: BP 127/72
--- NOTE | 2017-07-23 07:54 | PN- Housestaff ---
[place],[facility] 07/23/17 0754: Subjective Follow-up For: COPD exacerbation Pneumonia Complaints: SOB Cough Subjective: Patient seen and examined, he is lying on the bed with mild distress, on 2L NC. He report that his O2 taperd down during the night and immediately he felt that he desating, he still has productive cough and feels wheezing. He denies chest pain, fever, chills. Vitals stable Review of Systems Constitutional: Reports: no symptoms. Cardiovascular: Reports: no symptoms. Respiratory: Reports: cough, short of breath, wheezing. Gastrointestinal: Reports: no symptoms. Genitourinary: Reports: hematuria. Musculoskeletal: Reports: no symptoms. Neurological/Psychological: Reports: no symptoms. Immunologic/Allergic: Reports: no symptoms. Objective Last 24 Hrs of Vital Signs/I&O Vital Signs Date Time Temp Pulse Resp B/P B/P Pulse O2 O2 Flow FiO2 Mean Ox Delivery Rate 07/23 1940 97 Nasal 2.0L Cannula 07/23 1600 Nasal 2.0L Cannula 07/23 1600 94 Nasal 2.0L Cannula 07/23 1411 98.1 67 20 140/64 94 Nasal 2.0L Cannula 07/23 1112 63 130/72 07/23 0926 96 Nasal 2.0L Cannula 07/23 0800 Nasal 2.0L Cannula 07/23 0800 95 Nasal 2.0L Cannula 07/23 0656 98.3 63 20 127/72 97 Nasal 3.0L Cannula 07/23 0000 Nasal 3.0L Cannula 07/23 0000 Nasal 3.0L Cannula 07/22 2332 98.6 76 20 112/60 97 Nasal 3.0L Cannula 07/22 2007 96 Nasal 4.0L Cannula Intake & Output 07/23 1600 07/23 0800 07/23 0000 Intake Total 695 207 6150 Output Total 900 Balance 600 240 130 Intake, IV 30 Intake, Oral 650 753 0858 Number 0 Bowel Movements Output, Urine 900 Physical Exam General Appearance: Alert, Oriented X3, Cooperative, No Acute Distress Cardiovascular: Regular Rate, Normal S1, Normal S2 Lungs: Decrease air entry, bilateral wheezing Abdomen: Normal Bowel Sounds, Soft, No Tenderness, No Hepatospenomegaly, No Masses Extremities: No Edema, Normal Pulses Vascular: Normal Pulses, Pulses Symmetrical Current Medications: Current Medications Sig/Antonio Start time Last Medication Dose Route Stop Time Status Admin Acetaminophen 650 MG Q6P PRN 07/21 0300 AC PO Albuterol Sulfate 3 ML TID 07/21 1600 AC 07/23 INH 1940 Atorvastatin Calcium 40 MG 1700 07/21 1700 AC 07/23 PO 1743 Ceftriaxone Sodium 1,000 MG Q24H 07/21 1700 AC 07/23 IV 1744 Guaifenesin 600 MG Q12 07/21 1000 AC 07/23 PO 1112 Ipratropium [place] 2.5 ML TID 07/21 1600 AC 07/23 INH 1940 Lisinopril 5 MG DAILY 07/21 1000 AC 07/23 PO 1112 Methylprednisolone 40 MG Q12H 07/21 1800 AC 07/23 IV 1744 Metoprolol Succinate 25 MG DAILY 07/21 1000 AC 07/23 PO 1112 Nicotine 14 MG Q24 07/21 1000 AC TOP Patient Medication 1 ED ONE ONE 07/23 1145 DC Teaching ED 07/23 1146 Last 24 Hrs of Lab/Kristofer Results Last 24 Hrs of Labs/Mics: Laboratory Tests 07/23/17 0643: Anion Gap 10, Estimated GFR > 60, BUN/Creatinine Ratio 38.9 H, CBC w Diff NO MAN DIFF REQ, RBC 3.90 L, MCV 93.2, MCH 31.2 H, MCHC 33.5, RDW 14.1, MPV 8.9, Gran % 83.2 H, Lymphocytes % 10.7 L, Monocytes % 6.0, Eosinophils % 0, Basophils % 0.1, Absolute Granulocytes 14.6 H, Absolute Lymphocytes 1.9, Absolute Monocytes 1.1 H, Absolute Eosinophils 0, Absolute Basophils 0 Assessment/Plan Assessment: 71 year old male with past medical history significant for coronary artery disease, smoking 20 ppd, hypertension who presented to ED with chief complaint of shortness of breath. Urine strept antigen was positive.Pt also reported hematuria for about 2 weeks, an u/s obtained was positive for a bladder mass. Impression #CAP with new COPD exacerbationPNA with isolated strept pneumo antigen and positive sputum culture for strept pneumonia: Will continue supplementry O2, Pulmonology consult was placed with , IV Solu-medrol, TRC/nebs, IV ceftriaxone #Hematuria: Patient was seen by who recommend outpatient cystoscopy #Bladder mass. Given the hx of chronic smoking and now hematuria, high suspicion of malignancy. as mentioned patient was seen by who recommend Cystoscopy/TURP, ASA on hold in anticipation for the procedure next week. DVT: ALPS in the setting hematuria Problem List: 1. Dyspnea 2. Hematuria 3. Bladder neoplasm Pain Ratin Pain Location: - Pain Goal: Remain pain free Pain Plan: - Tomorrow's Labs & Rationales: CBC, BEP DVT/Prophylaxis: mechanical Belgica Manjarrez MD 07/23/17 1322: Attending MD Review Statement Attending Statement Attending MD Statement: examined this patient, discuss w/resident/PA/RADIATOR MECHANIC, agreed w/resident/PA/RADIATOR MECHANIC, reviewed EMR data (avail), discussed with nursing, discussed with case mgmt, reviewed images, amended to note Attending Assessment/Plan: Patient seen and examined, still feels short of breath and requiring significant amount of O2. Vital Signs Date Time Temp Pulse Resp B/P B/P Pulse O2 O2 Flow FiO2 Mean Ox Delivery Rate 07/23 1112 63 130/72 07/23 0926 96 Nasal 2.0L Cannula 07/23 0656 98.3 63 20 127/72 97 Nasal 3.0L Cannula 07/23 0000 Nasal 3.0L Cannula 07/23 0000 Nasal 3.0L Cannula 07/22 2332 98.6 76 20 112/60 97 Nasal 3.0L Cannula 07/22 2007 96 Nasal 4.0L Cannula 07/22 1600 93 Nasal 4.0L Cannula 07/22 1600 93 Nasal 4.0L Cannula 07/22 1407 98.4 63 20 118/60 99 Aerosol Mask On exam; aox3, nad. cv; s1,s2, rrr resp; mild scattered wheeze. abd; soft, nt, bs+ ext; no edema. Laboratory Tests 07/23 0643 Chemistry Sodium (137 - 145 mmol/L) 143 Potassium (3.5 - 5.1 mmol/L) 4.4 Chloride (98 - 107 mmol/L) 109 H Carbon Dioxide (22 - 30 mmol/L) 23 Anion Gap (5 - 16) 10 BUN (9 - 20 mg/dL) 35 H Creatinine (0.7 - 1.2 mg/dL) 0.9 Estimated GFR (>60 ml/min) > 60 BUN/Creatinine Ratio (7 - 25 %) 38.9 H Hematology CBC w Diff NO MAN DIFF REQ WBC (4.8 - 10.8 /CUMM) 17.6 H RBC (4.70 - 6.10 /CUMM) 3.90 L Hgb (14.0 - 18.0 G/DL) 12.2 L Hct (42 - 52 %) 36.3 L MCV (80.0 - 94.0 FL) 93.2 MCH (27.0 - 31.0 PG) 31.2 H MCHC (33.0 - 37.0 G/DL) 33.5 RDW (11.5 - 14.5 %) 14.1 Plt Count (130 - 400 /CUMM) 150 MPV (7.4 - 10.4 FL) 8.9 Gran % (42.2 - 75.2 %) 83.2 H Lymphocytes % (20.5 - 51.1 %) 10.7 L Monocytes % (1.7 - 9.3 %) 6.0 Eosinophils % (0 - 5 %) 0 Basophils % (0.0 - 2.0 %) 0.1 Absolute Granulocytes (1.4 - 6.5 /CUMM) 14.6 H Absolute Lymphocytes (1.2 - 3.4 /CUMM) 1.9 Absolute Monocytes (0.10 - 0.60 /CUMM) 1.1 H Absolute Eosinophils (0.0 - 0.7 /CUMM) 0 Absolute Basophils (0.0 - 0.2 /CUMM) 0 A/P; 71 yo M with h/o HTN, CAD s/p AL, current smoker, admitted with sob, significant hypoxia, with CTA chest showing infectious bronchiolitis and negative pulmonary embolism. Renal ultrasound consistent with bladder mass and patient having shakir hematuria. Still requiring significant amount of O2. Will continue IV steroids, Abx, TRC nebs. Pulm consult requested. Hematuria workup/bladder mass evaluation will be done as an outpatient per Dr. Elaine. Continue the rest of the medications. DVt px; ALPS 2/2 to hematuria.
[2017-07-23 08:20] LABS: ABSOLUTE BASOPHIL COUNT 0 /CUMM (0.0-0.2); ABSOLUTE EOSINOPHIL COUNT 0 /CUMM (0.0-0.7); ABSOLUTE GRANULOCYTE CT 14.6 /CUMM (1.4-6.5); ABSOLUTE LYMPH COUNT 1.9 /CUMM (1.2-3.4); ABSOLUTE MONOCYTE COUNT 1.1 /CUMM (0.10-0.60); BASOPHIL % 0.1 % (0.0-2.0); EOSINOPHIL % 0 % (0-5); HEMATOCRIT 36.3 % (42-52); MEAN CORPUSCULAR HGB 31.2 PG (27.0-31.0); MEAN CORPUSCULAR HGB CONC 33.5 G/DL (33.0-37.0); MEAN CORPUSCULAR VOLUME 93.2 FL (80.0-94.0); MEAN PLATELET VOLUME 8.9 FL (7.4-10.4); PLATELET COUNT 150 /CUMM (130-400); RBC DISTRIBUTION WIDTH 14.1 % (11.5-14.5); WHITE BLOOD CELL COUNT 17.6 /CUMM (4.8-10.8)
[2017-07-23 08:55] LABS: GRANULOCYTE % 83.2 % (42.2-75.2)
[2017-07-23 14:11] VITALS: BP 140/64
--- NOTE | 2017-07-23 20:54 | Cons- Pulmonary ---
General Information and HPI Consulting Request Date of Consult: 07/23/17 Requested By: med team History of Present Illness: Mr. Davidson is a 71 year old male with past medical history significant for coronary artery disease , smoking 2 ppd quit a few months ago, hypertension who presented to ED with chief complaint of shortness of breath. Patient reported that for the last 3 days he has been getting short of breath mainly on ambulation, productive cough of clear phlegm, chills but denied any fever. Patient denied any chest pain, heart racing. His symptoms preceded by congested nose for 2 days. Denied any sick contact. He had flu and pneumonia vaccines this season. Patient denied any weight loss, lower extremity swelling, abdominal pain, nausea or vomiting, joint pain, muscle ache. Last night he felt very short of breath and called EMS. Denied orthopnea or paroxysmal nocturnal dyspnea. Constitutional: Reports: see HPI, chills. Denies: fever, malaise, weakness. EENTM: Denies: blurred vision. Cardiovascular: Denies: chest pain, orthopena. Respiratory: Reports: cough, short of breath. GI: Denies: abdominal pain, constipation. Genitourinary: Denies: dysuria. Musculoskeletal: Denies: joint pain, joint swelling. Skin: Denies: rash. Allergies/Medications Allergies: Coded Allergies: No Known Allergies (07/21/17) Home Med List: Amoxicillin/Potassium Clav (Augmentin 875-125 Tablet) 875 MG-125 MG TABLET 1 TAB PO BID PNA Aspirin (Aspirin*) 325 MG TABLET 1 TAB PO DAILY HEART HEALTH (Reported) Lisinopril 5 MG TABLET 1 TAB PO DAILY HIGH BLOOD PRESSURE (Reported) Metoprolol Succ XL (Toprol XL) 25 MG TAB 1 TAB PO DAILY HIGH BLOOD PRESSURE ( Reported) Prednisone 10 MG TABLET 1 TAB PO SEE ADMIN CRITERIA LUNG 50 MG X2 DAYS,40MG X2 DAYS, 30MG X2 DAYS, 20 MG X2 DAYS,10MG X2 DAYS, THEN STOP. Rosuvastatin Calcium (Crestor) 10 MG TABLET 1 TAB PO DAILY HIGH CHOLESTROL ( Reported) Review of Systems Review of Systems Constitutional: Reports: see HPI. Past History Travel History Traveled to [place] past 21 day No Medical History Blood Transfusion Hx: No Cardiovascular: CAD, hypertension, hyperlipidemia Respiratory: COPD Surgical History Surgical History: non-contributory Psychosocial History Where Do You Live? Home Services at Home: None Smoking Status: Former Smoker Exam & Diagnostic Data Last 24 Hrs of Vital Signs/I&O Vital Signs Date Time Temp Pulse Resp B/P B/P Pulse O2 O2 Flow FiO2 Mean Ox Delivery Rate 07/23 1940 97 Nasal 2.0L Cannula 07/23 1600 Nasal 2.0L Cannula 07/23 1600 94 Nasal 2.0L Cannula 07/23 1411 98.1 67 20 140/64 94 Nasal 2.0L Cannula 07/23 1112 63 130/72 07/23 0926 96 Nasal 2.0L Cannula 07/23 0800 Nasal 2.0L Cannula 07/23 0800 95 Nasal 2.0L Cannula 07/23 0656 98.3 63 20 127/72 97 Nasal 3.0L Cannula 07/23 0000 Nasal 3.0L Cannula 07/23 0000 Nasal 3.0L Cannula 07/22 2332 98.6 76 20 112/60 97 Nasal 3.0L Cannula Intake & Output 07/23 1600 07/23 0800 07/23 0000 Intake Total 877 596 2195 Output Total 900 Balance 600 240 130 Intake, IV 30 Intake, Oral 139 614 5905 Number 0 Bowel Movements Output, Urine 900 Last 48 Hrs of Labs/Kristofer: Laboratory Tests 07/23/17 0643: Anion Gap 10, Estimated GFR > 60, BUN/Creatinine Ratio 38.9 H, CBC w Diff NO MAN DIFF REQ, RBC 3.90 L, MCV 93.2, MCH 31.2 H, MCHC 33.5, RDW 14.1, MPV 8.9, Gran % 83.2 H, Lymphocytes % 10.7 L, Monocytes % 6.0, Eosinophils % 0, Basophils % 0.1, Absolute Granulocytes 14.6 H, Absolute Lymphocytes 1.9, Absolute Monocytes 1.1 H, Absolute Eosinophils 0, Absolute Basophils 0 07/22/17 0644: CBC w Diff MAN DIFF ORDERED, RBC 3.94 L, MCV 93.2, MCH 31.0, MCHC 33.2, RDW 14.2, MPV 9.1, Gran % 86.6 H, Lymphocytes % 5.8 L, Monocytes % 7.5, Eosinophils % 0, Basophils % 0.1, Absolute Granulocytes 16.0 H, Segmented Neutrophils 72, Band Neutrophils 12 H, Absolute Lymphocytes 1.1 L, Lymphocytes 9 L, Monocytes 7, Absolute Monocytes 1.4 H, Absolute Eosinophils 0, Absolute Basophils 0, Platelet Estimate DECREASED, Hypochromic-Microcytic 1+, Anisocytosis 1+ 07/22/17 0610: Anion Gap 12, Estimated GFR > 60, BUN/Creatinine Ratio 32.5 H Assessment/Plan Impression/Plan: General Appearance Alert, Oriented X3, Cooperative, No Acute Distress Skin No Rashes, No Breakdown Skin Temp/Moisture Exam: Warm/Dry HEENT Atraumatic, PERRLA, EOMI, Mucous Membr. moist/pink Neck Supple Lymphatic no cervical lymphadenopathy Cardiovascular Regular Rate, Normal S1, Normal S2, No Murmurs Lungs basal wheeze Abdomen Normal Bowel Sounds, Soft, No Tenderness Neurological Normal Speech, Strength at 5/5 X4 Ext, Normal Tone, Sensation Intact, Cranial Nerves 3-12 NL, Reflexes 2+ Extremities No Clubbing, No Cyanosis, Normal Pulses, No Tenderness/Swelling, Bilateral trace pedal edema CT chest IMPRESSION: 1. No evidence of pulmonary embolism. However, the quality of the contrast bolus is not optimal. If there is a high clinical suspicion, then consider obtaining lower extremity venous ultrasound. 2. Bronchial khoury are thickened and there are scattered endobronchial secretions. Also, tree-in-bud nodules are present within the lingula, consistent with infectious bronchiolitis. Small patches of groundglass opacity in lower lobes, suspicious for pneumonitis. No pleural effusion or lymphadenopathy. 3. Atherosclerosis of coronary arteries and thoracic aorta without aortic aneurysm. IMPRESSION This is a 71-year-old gentleman with past medical history of coronary artery disease, significant smoking history has quit recently, hypertension, obesity, is here with significant cough wheezing shortness of breath. Issues include * Significant bronchiolitis with strep pneumoniae bronchopneumonia. * Significant COPD by history and COPD exacerbation * Ongoing hematuria with the bladder mass highly suspicious for malignancy * Previous history of significant smoking * Previous history of ischemic heart disease, hypertension, hyperlipidemia with good performance status in the recent past RECOMMENDATION Continue intravenous steroids and switch him to by mouth prednisone 60 mg with a 14 day taper Continue ceftriaxone Discontinue nicotine patch Continue nebulizer as needed Start him on Spiriva 1 puff daily Start him on Symbicort 2 puffs twice a day Change him to losartan 25 mg daily discontinue lisinopril Patient would need a cystoscopy and evaluation of the bladder mass Eventually would require CT scan of the abdomen and pelvis with IV contrast. Consult Acknowledgment - Thank you for your consult request.
[2017-07-23 22:13] VITALS: BP 132/60
[2017-07-24 06:40] VITALS: BP 132/80
--- NOTE | 2017-07-24 07:49 | PN- Housestaff ---
See Addendum Subjective Follow-up For: COPD exacerbation Pneumonia Complaints: no complaints Subjective: Patient seen and examined, eating his breakfast, he is feeling much better today , with good sleep overnight. No events reported, he is down to 1L O2 by NC, his O2 on ambulation is 94%. He denies any chest pain, SOB, fever, chills. He still having hematuria. Review of Systems Constitutional: Reports: no symptoms. EENTM: Reports: no symptoms. Cardiovascular: Reports: no symptoms. Respiratory: Reports: see HPI. Gastrointestinal: Reports: no symptoms. Genitourinary: Reports: hematuria. Musculoskeletal: Reports: no symptoms. Skin: Reports: no symptoms. Neurological/Psychological: Reports: no symptoms. Hematologic/Endocrine: Reports: no symptoms. Immunologic/Allergic: Reports: no symptoms. Objective Last 24 Hrs of Vital Signs/I&O Vital Signs Date Time Temp Pulse Resp B/P B/P Pulse O2 O2 Flow FiO2 Mean Ox Delivery Rate 07/24 0810 95 Nasal 2.0L Cannula 07/24 0640 98.3 72 20 132/80 94 Nasal 2.0L Cannula 07/24 0000 Nasal 2.0L Cannula 07/24 0000 Nasal 2.0L Cannula 07/23 2213 97.8 70 20 132/60 96 Nasal 2.0L Cannula 07/23 1940 97 Nasal 2.0L Cannula 07/23 1600 Nasal 2.0L Cannula 07/23 1600 94 Nasal 2.0L Cannula 07/23 1411 98.1 67 20 140/64 94 Nasal 2.0L Cannula 07/23 1112 63 130/72 07/23 0926 96 Nasal 2.0L Cannula Intake & Output 07/24 1600 07/24 0800 07/24 0000 Intake Total 240 Output Total Balance 240 Intake, Oral 240 Physical Exam General Appearance: Alert, Oriented X3, Cooperative, No Acute Distress Skin: No Rashes, No Breakdown, No Significant Lesion Skin Temp/Moisture Exam: Warm/Dry HEENT: Atraumatic, PERRLA, EOMI, Mucous Membr. moist/pink Neck: Supple, No JVD Lymphatic: Axillary nl, Cervical nl Cardiovascular: Regular Rate, Normal S1, Normal S2, No Murmurs Lungs: Clear to Auscultation, Normal Air Movement Abdomen: Normal Bowel Sounds, Soft, No Tenderness Neurological: Normal Speech Extremities: No Clubbing, No Cyanosis, No Edema, Normal Pulses Vascular: Normal Pulses, Pulses Symmetrical Current Medications: Current Medications Sig/Antonio Start time Last Medication Dose Route Stop Time Status Admin Acetaminophen 650 MG Q6P PRN 07/21 0300 AC PO Albuterol Sulfate 3 ML TID 07/21 1600 AC 07/24 INH 0806 Atorvastatin Calcium 40 MG 1700 07/21 1700 AC 07/23 PO 1743 Budesonide/ 2 PUF BID 07/24 0018 AC 07/24 Formoterol Fumarate INH 0206 Ceftriaxone Sodium 1,000 MG Q24H 07/21 1700 AC 07/23 IV 1744 Guaifenesin 600 MG Q12 07/21 1000 AC 07/23 PO 2058 Ipratropium [place] 2.5 ML TID 07/21 1600 AC 07/24 INH 0806 Lisinopril 5 MG DAILY 07/21 1000 DC 07/23 PO 1112 Losartan Potassium 25 MG DAILY 07/24 1000 AC PO Methylprednisolone 40 MG Q12H 07/21 1800 DC 07/24 IV 0518 Metoprolol Succinate 25 MG DAILY 07/21 1000 AC 07/23 PO 1112 Nicotine 14 MG Q24 07/21 1000 DC TOP Patient Medication 1 ED ONE ONE 07/23 1145 DC Teaching ED 07/23 1146 Prednisone 60 MG DAILY 07/24 1000 AC PO 07/25 2355 Tiotropium [place] 1 PUF DAILY 07/24 1000 AC INH Last 24 Hrs of Lab/Kristofer Results Last 24 Hrs of Labs/Mics: Laboratory Tests 07/24/17 0622: Anion Gap 8, Estimated GFR > 60, BUN/Creatinine Ratio 36.7 H, CBC w Diff NO MAN DIFF REQ, RBC 4.01 L, MCV 92.6, MCH 30.9, MCHC 33.3, RDW 14.1, MPV 8.7, Gran % 80.3 H, Lymphocytes % 12.1 L, Monocytes % 7.5, Eosinophils % 0, Basophils % 0.1, Absolute Granulocytes 11.8 H, Absolute Lymphocytes 1.8, Absolute Monocytes 1.1 H, Absolute Eosinophils 0, Absolute Basophils 0 Assessment/Plan Assessment: 71 year old male with past medical history significant for coronary artery disease, smoking 20 ppd, hypertension who presented to ED with chief complaint of shortness of breath. Urine strept antigen was positive.Pt also reported hematuria for about 2 weeks, an u/s obtained was positive for a bladder mass. Impression #CAP with new COPD exacerbation: isolated strept pneumo antigen and positive sputum culture for strept pneumonia: Will continue supplementry O2, saw the patient yesterday and recommend spiriva, symbicort, hold nicotine patch, and switch to po prednisone upon improvement, will continue TRC/nebs, will dc O2 and monitor O2 sat at rest and ambulation, aim>92%, if stable he can go home on PO Augmentin. #Hematuria: Patient was seen by who recommend outpatient cystoscopy, ASA on hold in anticipation for the procedure. #Bladder mass. Given the hx of chronic smoking and now hematuria, high suspicion of malignancy. as mentioned patient was seen by who recommend Cystoscopy/TURP, ASA on hold in anticipation for the procedure next week. DVT: ALPS in the setting hematuria Problem List: 1. Bladder neoplasm 2. Hematuria 3. COPD exacerbation 4. CAP (community acquired pneumonia) Pain Ratin Pain Location: - Pain Goal: Remain pain free Pain Plan: - Tomorrow's Labs & Rationales: - DVT/Prophylaxis: pharmacological
[2017-07-24 08:22] LABS: ABSOLUTE BASOPHIL COUNT 0 /CUMM (0.0-0.2); ABSOLUTE EOSINOPHIL COUNT 0 /CUMM (0.0-0.7); ABSOLUTE GRANULOCYTE CT 11.8 /CUMM (1.4-6.5); ABSOLUTE LYMPH COUNT 1.8 /CUMM (1.2-3.4); ABSOLUTE MONOCYTE COUNT 1.1 /CUMM (0.10-0.60); BASOPHIL % 0.1 % (0.0-2.0); EOSINOPHIL % 0 % (0-5); GRANULOCYTE % 80.3 % (42.2-75.2); HEMATOCRIT 37.2 % (42-52); MEAN CORPUSCULAR HGB 30.9 PG (27.0-31.0); MEAN CORPUSCULAR HGB CONC 33.3 G/DL (33.0-37.0); MEAN CORPUSCULAR VOLUME 92.6 FL (80.0-94.0); MEAN PLATELET VOLUME 8.7 FL (7.4-10.4); PLATELET COUNT 166 /CUMM (130-400); RBC DISTRIBUTION WIDTH 14.1 % (11.5-14.5); RED BLOOD CELL CT 4.01 /CUMM (4.70-6.10); WHITE BLOOD CELL COUNT 14.7 /CUMM (4.8-10.8)
[2017-07-24] MEDS ORDERED: SPIRIVA18 MCG INH (11:54)
[2017-07-24] MEDS ORDERED: LOSARTAN POTASS25 M1 PO (11:54)
[2017-07-24] MEDS ORDERED: SYMBICORT 16010.2 GM INH (11:54)
--- NOTE | 2017-07-24 11:56 | CT SCAN REPORT ---
EXAMINATION: CT ABDOMEN AND PELVIS WITH CONTRAST CLINICAL INFORMATION: Bladder mass is suggestive of malignancy. Hematuria. COMPARISON: Renal and bladder ultrasound from 07/21/2017. TECHNIQUE: Multidetector volumetric imaging was performed of the abdomen and pelvis following IV administration of 95 mL of Optiray 320 intravenous contrast. Sagittal and coronal reformatted images were obtained on the technologist's workstation. DLP: 619 mGy-cm FINDINGS: LUNG BASES: There are a few calcified granulomas in the visualized lung bases. Also, scattered endobronchial secretions are seen. No basilar consolidation or pleural effusion. LIVER, GALLBLADDER, AND BILIARY TREE: Liver has normal size, contour and attenuation. Gallbladder is unremarkable. No intrahepatic or extrahepatic bile duct dilatation. PANCREAS: Unremarkable. SPLEEN: Unremarkable. ADRENAL GLANDS: Unremarkable. KIDNEYS AND URETERS: Kidneys are normal in size and enhance symmetrically. Small, 0.5 cm cortical cyst in the interpolar region of the right kidney and 0.7 cm cortical cyst at the upper pole of the left kidney. No evidence of solid renal mass. 0.4 cm calyceal stone within the right lower pole. No ureterolithiasis or hydroureteronephrosis. The ureters are grossly unremarkable. There is nonspecific bilateral perinephric edema. BLADDER: Lobulated 4.3 x 3.8 x 3.5 cm mass arises from the right posterior bladder wall. No bladder calculi. There are no exophytic lesions of the bladder. GASTROINTESTINAL TRACT: Bowel loops are normal in caliber. Diverticulosis of the descending and sigmoid colon without diverticulitis. Appendix is normal. No ascites. ABDOMINAL WALL: There is mesh along the midline of the upper abdominal wall. Small amount of fat protrudes into each inguinal canal. LYMPH NODES: No pathologic sized lymph nodes within the abdomen or pelvis. VASCULAR: Atherosclerotic calcification of the abdominal aorta. The infrarenal aorta measures up to 3.2 cm AP diameter and 3 cm transverse diameter. PELVIC VISCERA: Prostate gland is grossly unremarkable. No pelvic free fluid. OSSEOUS STRUCTURES: No suspicious lesions within the degenerated spine. Mild osteoarthritis of the hips. IMPRESSION: 1. 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 2. No evidence of metastatic disease in the abdomen or pelvis. 3. Small, nonobstructing calyceal stone within the lower pole of the right kidney. 4. 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 5. Diverticulosis of the descending and sigmoid colon without diverticulitis.
[2017-07-24] MEDS ORDERED: PROAIR HFA8.5 GM INH (12:07)
[2017-07-24 13:37] VITALS: BP 140/60
--- NOTE | 2017-07-24 14:23 | PN- Pulmonary ---
Subjective HPI/Critical Care Issues: Patient seen and examined he is feeling much better today, with good sleep overnight. No events reported, he is down to 1L O2 by NC, his O2 on ambulation is 94%. He denies any chest pain, SOB, fever, chills. He still having hematuria. Review of Systems Constitutional: Reports: no symptoms. EENTM: Reports: no symptoms. Cardiovascular: Reports: no symptoms. Respiratory: Reports: see HPI. Gastrointestinal: Reports: no symptoms. Genitourinary: Reports: hematuria. Musculoskeletal: Reports: no symptoms. Skin: Reports: no symptoms. Neurological/Psychological: Reports: no symptoms. Hematologic/Endocrine: Reports: no symptoms. Immunologic/Allergic: Reports: no symptoms. Objective Current Medications: Current Medications Sig/Antonio Start time Last Medication Dose Route Stop Time Status Admin Acetaminophen 650 MG Q6P PRN 07/21 0300 AC PO Albuterol Sulfate 3 ML TID 07/21 1600 AC 07/24 INH 1354 Atorvastatin Calcium 40 MG 1700 07/21 1700 AC 07/23 PO 1743 Budesonide/ 2 PUF BID 07/24 0018 AC 07/24 Formoterol Fumarate INH 1145 Ceftriaxone Sodium 1,000 MG Q24H 07/21 1700 AC 07/23 IV 1744 Guaifenesin 600 MG Q12 07/21 1000 AC 07/24 PO 1022 Ipratropium [place] 2.5 ML TID 07/21 1600 AC 07/24 INH 1354 Lisinopril 5 MG DAILY 07/21 1000 DC 07/23 PO 1112 Losartan Potassium 25 MG DAILY 07/24 1000 AC 07/24 PO 1022 Methylprednisolone 40 MG Q12H 07/21 1800 DC 07/24 IV 0518 Metoprolol Succinate 25 MG DAILY 07/21 1000 AC 07/24 PO 1024 Nicotine 14 MG Q24 07/21 1000 DC TOP Prednisone 60 MG DAILY 07/24 1000 AC / PO 16 2355 1023 Tiotropium [place] 1 PUF DAILY 07/24 1000 AC 07/24 INH 1023 Vital Signs & I&O Last 24 Hrs of Vitals and I&O: Vital Signs Date Time Temp Pulse Resp B/P B/P Pulse O2 O2 Flow FiO2 Mean Ox Delivery Rate 07/24 1337 98.8 88 20 140/60 93 07/24 1024 70 130/70 07/24 1022 70 130/80 07/24 0810 95 Nasal 2.0L Cannula 07/24 0800 93 Room Air Room Air 07/24 0800 93 Room Air Room Air 07/24 0640 98.3 72 20 132/80 94 Nasal 2.0L Cannula 07/24 0000 Nasal 2.0L Cannula 07/24 0000 Nasal 2.0L Cannula 07/23 2213 97.8 70 20 132/60 96 Nasal 2.0L Cannula 07/23 1940 97 Nasal 2.0L Cannula 07/23 1600 Nasal 2.0L Cannula 07/23 1600 94 Nasal 2.0L Cannula Intake & Output 07/24 1600 07/24 0800 07/24 0000 Intake Total 240 Output Total Balance 240 Intake, Oral 240 Laboratory Tests 07/24 07/23 0622 0643 Chemistry Sodium (137 - 145 mmol/L) 141 143 Potassium (3.5 - 5.1 mmol/L) 4.2 4.4 Chloride (98 - 107 mmol/L) 108 H 109 H Carbon Dioxide (22 - 30 mmol/L) 24 23 Anion Gap (5 - 16) 8 10 BUN (9 - 20 mg/dL) 33 H 35 H Creatinine (0.7 - 1.2 mg/dL) 0.9 0.9 Estimated GFR (>60 ml/min) > 60 > 60 BUN/Creatinine Ratio (7 - 25 %) 36.7 H 38.9 H Hematology CBC w Diff NO MAN DIFF REQ NO MAN DIFF REQ WBC (4.8 - 10.8 /CUMM) 14.7 H 17.6 H RBC (4.70 - 6.10 /CUMM) 4.01 L 3.90 L Hgb (14.0 - 18.0 G/DL) 12.4 L 12.2 L Hct (42 - 52 %) 37.2 L 36.3 L MCV (80.0 - 94.0 FL) 92.6 93.2 MCH (27.0 - 31.0 PG) 30.9 31.2 H MCHC (33.0 - 37.0 G/DL) 33.3 33.5 RDW (11.5 - 14.5 %) 14.1 14.1 Plt Count (130 - 400 /CUMM) 166 150 MPV (7.4 - 10.4 FL) 8.7 8.9 Gran % (42.2 - 75.2 %) 80.3 H 83.2 H Lymphocytes % (20.5 - 51.1 %) 12.1 L 10.7 L Monocytes % (1.7 - 9.3 %) 7.5 6.0 Eosinophils % (0 - 5 %) 0 0 Basophils % (0.0 - 2.0 %) 0.1 0.1 Absolute Granulocytes (1.4 - 6.5 /CUMM) 11.8 H 14.6 H Absolute Lymphocytes (1.2 - 3.4 /CUMM) 1.8 1.9 Absolute Monocytes (0.10 - 0.60 /CUMM) 1.1 H 1.1 H Absolute Eosinophils (0.0 - 0.7 /CUMM) 0 0 Absolute Basophils (0.0 - 0.2 /CUMM) 0 0 Impression/Plan Impression/Plan Impression/Plan: General Appearance Alert, Oriented X3, Cooperative, No Acute Distress Skin No Rashes, No Breakdown Skin Temp/Moisture Exam: Warm/Dry HEENT Atraumatic, PERRLA, EOMI, Mucous Membr. moist/pink Neck Supple Lymphatic no cervical lymphadenopathy Cardiovascular Regular Rate, Normal S1, Normal S2, No Murmurs Lungs basal wheeze Abdomen Normal Bowel Sounds, Soft, No Tenderness Neurological Normal Speech, Strength at 5/5 X4 Ext, Normal Tone, Sensation Intact, Cranial Nerves 3-12 NL, Reflexes 2+ Extremities No Clubbing, No Cyanosis, Normal Pulses, No Tenderness/Swelling, Bilateral trace pedal edema CT abd 1. 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 2. No evidence of metastatic disease in the abdomen or pelvis. 3. Small, nonobstructing calyceal stone within the lower pole of the right kidney. 4. 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 5. Diverticulosis of the descending and sigmoid colon without diverticulitis. CT chest IMPRESSION: 1. No evidence of pulmonary embolism. However, the quality of the contrast bolus is not optimal. If there is a high clinical suspicion, then consider obtaining lower extremity venous ultrasound. 2. Bronchial khoury are thickened and there are scattered endobronchial secretions. Also, tree-in-bud nodules are present within the lingula, consistent with infectious bronchiolitis. Small patches of groundglass opacity in lower lobes, suspicious for pneumonitis. No pleural effusion or lymphadenopathy. 3. Atherosclerosis of coronary arteries and thoracic aorta without aortic aneurysm. IMPRESSION This is a 71-year-old gentleman with past medical history of coronary artery disease, significant smoking history has quit recently, hypertension, obesity, is here with significant cough wheezing shortness of breath. Issues include * Significant bronchiolitis with strep pneumoniae bronchopneumonia. * Significant COPD by history and COPD exacerbation * Ongoing hematuria with the bladder mass highly suspicious for malignancy * Previous history of significant smoking * Previous history of ischemic heart disease, hypertension, hyperlipidemia with good performance status in the recent past RECOMMENDATION Prednisone 60 mg with a 14 day taper Can change to po ceftin 500 bid for total of seven days Discontinue nicotine patch Continue nebulizer as needed Start him on Spiriva 1 puff daily Start him on Symbicort 2 puffs twice a day Change him to losartan 25 mg daily discontinue lisinopril Patient would need a cystoscopy and evaluation of the bladder mass
[2017-07-24] MEDS ORDERED: AUGMENTIN 875-1 EACH PO (21:31)
[2017-07-24] MEDS ORDERED: PREDNISONE10 M2 PO (21:31)
--- NOTE | 2017-07-28 09:30 | Discharge Summary ---
Visit Information Visit Dates Admission Date: 07/21/17 Discharge Date: 07/24/17 Hospital Course Course Attending Physician: Loki PIPER,[place] Primary Care Physician: Herbert PIPER,Navi [place] Hospital Course: 71 yo M with h/o HTN, CAD s/p GA, current smoker (quit 2 months back but started again), presented to ED for evaluation of difficulty breathing ("I could not catch my breath"), wheezing and productive cough. Patient reports he has had ' head cold', congestion for the past 3 days. He denies fevers, chills, chest pain , lightheadedness or palpitations. No sick contacts. Received flu vaccine last year. He has no definitive diagnosis of asthma or COPD, and has never seen a Narcotics Detective. Patient is scheduled for colonoscopy today Jul 21 and had started taking the oral prep, after which his symptoms seem to have gotten worse. At Emergency department: Vitals: Tmax 100.4, HR 90-100's, BP 134/63, sats 89% on RA --> 93% on 3L. Exam: AAO, in no distress, able to speak in full sentences, Chest b/l reduced air entry with expiratory wheezes++, Heart S1S2 regular, LE no edema. Labs: WBC 12.6, Plt 121, D-dimer 276, BUN 23, glucose 128, trop neg. Rapid flu is negative. CXR: no acute findings. Chronic appearing deformity of posterolateral right fifth rib. EKG: sinus tachycardia, PVC's. He was admitted to general medicine floor and we managed the following problems: 1. Acute hypoxic respiratory failure 2. COPD exacerbation, initially no evidence of pneumonia on CXR BUT then CTA was orderd which showed small patches of groundglass opacity in lower lobes, suspicious for pneumonitis. No pleural effusion or lymphadenopathy. Urine strept antigen was positive and sputum culture was positive for strept pneumonia. Pateint started on IV Solumedrol for COPD exacerbation and IV Ceftrizxone for pneumonia which switched to PO augmentin on discharge, TRC/Nebs, Pulmonology consult was placed with Dr. Yates who agreed with above and recommend to start Spiriva, and Symbicort and long prednisone taper for 14 days and a f/u with him in an outpatient setting. He was counceled for smoking cessation. 3. Hematuria: In the second day of his hospital stay he developed hematuria, renal US ordered which showed Lobulated urinary bladder mass suspicious as representing the etiology for the patient's hematuria. Recommendation is for cystoscopy. Urology consult was placed who recommend Cystoscopy and TURP as an outpatient for possible transitional cell carcinoma, patient was on ASA which we held in anticipation for the procedure for at least 1 week, he was advised to discuss with his urologist when to resume ASA. 3. Smoker: Counceled about the important of smoking cessation. 5.AAA: He was also informed about the AAA, AP diameter is 3.2 cm, he needs a reapeated imaging in 6 months or 12 months, if there is expnasion more than 0.5 cm in 6 months, or >1 cm in 1 year then he needs to be refered to vascular surgeon. He was also encouraged to quiet smoking as it's the #1 risk factor for AAA and for risk of expansion. 4. h/o CAD s/p GA, Hx. of HTN, HLD: Stable throughout hospitalization, with stable BP and hemodynamics. His home meds Losartan, lisinopril, Metoprolol XL and lipitor was continued. He has the following imaging in this hospital stay: CXR: With no acute abnormalities Renal US: Neither hydronephrosis nor nephrolithiasis. Lobulated urinary bladder mass suspicious as representing the etiology for the patient's hematuria. Recommendation is for cystoscopy. Chest CTA: 1. No evidence of pulmonary embolism. However, the quality of the contrast bolus is not optimal. If there is a high clinical suspicion, then consider obtaining lower extremity venous ultrasound. 2. Bronchial khoury are thickened and there are scattered endobronchial secretions. Also, tree-in-bud nodules are present within the lingula, consistent with infectious bronchiolitis. Small patches of groundglass opacity in lower lobes, suspicious for pneumonitis. No pleural effusion or lymphadenopathy. 3. Atherosclerosis of coronary arteries and thoracic aorta without aortic aneurysm. CT abdomen/ pelvis: 1. 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 2. No evidence of metastatic disease in the abdomen or pelvis. 3. Small, nonobstructing calyceal stone within the lower pole of the right kidney. 4. 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 5. Diverticulosis of the descending and sigmoid colon without diverticulitis. Complications: Non Allergies: Coded Allergies: No Known Allergies (07/21/17) Disposition Summary Disposition Principal Diagnosis: -CAP -COPD EXACERBATION -HENATURIA 2/2 POSSIBLE TRANSITIONAL CELL CARCINOMA -AAA -HX. OF GA S/P STENT -HX. OF HTN, HLD Additional Diagnosis: ABOVE Discharge Disposition: home or self care Discharge Instructions General Discharge Information Code Status: Full Code Patient's Diet: Heart healthy diet Patient's Activity: As tolerated Follow-Up Instructions/Appts: -PLEASE STOP TAKING ASPIRIN FOR A WEEK IN ANTICIPATION OF A PROCEDURE BY THE UROLOGIST. DISCUSS WITH UROLOGIST WHEN TO RESUME ASPIRIN -CONTACT YOUR PRIMARY CARE ON WHEN TO RESTART YOUR ASPIRIN -PLEASE CONTACT DR BRYANT WITHIN A 1-2 DAYS AFTER DISCHARGE TO SCHEDULE A VISIT WITH HIM (HIS CONTACT HAS BEEN PROVIDED FOR YOU) -PLEASE FOLLOW UP WITH YOUR PCP WITHIN 1 WEEK, you need to F/U with your PCP about AAA. Medications at Discharge Discharge Medications: Stop taking the following medications: Lisinopril (Lisinopril) 5 MG TABLET ORAL DAILY Continue taking these medications: Metoprolol Succ XL (Toprol XL) 25 MG TAB 1 Tablet ORAL DAILY Comments: Last Taken: 07/24/17 Time: 10:30 AM Rosuvastatin Calcium (Crestor) 10 MG TABLET 1 Tablet ORAL DAILY Comments: Last Taken: 07/23/17 Time: 5:45 PM (LIPITOR 40MG PO GIVEN) Aspirin (Aspirin*) 325 MG TABLET 1 Tablet ORAL DAILY Instructions: Medication on hold in anticipation for Cystoscopy/TURP. Discuss with urologist when to resume aspirin Comments: Last Taken: 07/21/17 Time: 9:00 AM Start taking the following new medications: Amoxicillin/Potassium Clav (Augmentin 875-125 Tablet) 875 MG-125 MG TABLET 1 Tablet ORAL TWICE DAILY Qty = 8 No Refills Instructions: . Comments: NOT GIVEN IN HOSPITAL Prednisone (Prednisone) 10 MG TABLET 1 Tablet ORAL SEE INSTRUCTIONS Qty = 30 No Refills Instructions: 50 MG X2 DAYS,40MG X2 DAYS, 30MG X2 DAYS, 20 MG X2 DAYS,10MG X2 DAYS, THEN STOP., Comments: Last Taken: 07/24/17 Time: 10:30 AM Tiotropium [place] (Spiriva) 18 MCG CAP.W.DEV 1 Puff Inhale through mouth DAILY Qty = 3 No Refills Comments: Last Taken: 07/24/17 Time: 10:30 AM Losartan Potassium (Losartan Potassium) 25 MG TABLET 25 Milligram ORAL DAILY Qty = 60 No Refills Comments: Last Taken: 07/24/17 Time: 10:30 AM Budesonide/Formoterol Fumarate (Symbicort 160-4.5 Mcg Inhaler) 160 MCG-4.5 MCG/ ACTUATION HFA.AER.AD 2 Puff Inhale through mouth TWICE DAILY Qty = 2 No Refills Comments: Last Taken: 07/24/17 Time: 12:00 PM Albuterol Sulfate (Proair Hfa) 90 MCG HFA.AER.AD 2 Puff Inhale through mouth EVERY 4-6 HOURS NEEDED as needed for COPD Qty = 1 No Refills Comments: NOT GIVEN IN HOSPITAL Copies To: [place] PIPER,Jorge Huston; Herbert PIPER,Navi Ca
== END 2017-07-24 15:01 | DRG 193 ==
LOC: ERH 23:00 → 2NB 07-21 01:28 → ERHI 07-21 01:28 → ENRESERV 07-21 05:46 → 2NB 07-21 06:19 → ENPENDDIS 07-24 12:41 → ENTRNSPT 07-24 14:21 → EDTRNSPT 07-24 14:53 → CMPTRNSPT 07-24 14:57 → 2NB 07-24 15:01
PROVIDERS: Physician Assistant Medical; Student in an Organized Health Care Education/Training Program
DX: J13 Pneumonia due to Streptococcus pneumoniae (principal); J96.01 Acute respiratory failure with hypoxia; J21.8 Acute bronchiolitis due to other specified organisms; J44.1 Chronic obstructive pulmonary disease with (acute) exacerbation; J44.0 Chronic obstructive pulmonary disease with (acute) lower respiratory infection; D69.6 Thrombocytopenia, unspecified; R31.0 Gross hematuria; I10 Essential (primary) hypertension; E66.9 Obesity, unspecified; Z68.38 Body mass index [BMI] 38.0-38.9, adult; D49.4 Neoplasm of unspecified behavior of bladder; I25.10 Atherosclerotic heart disease of native coronary artery without angina pectoris; Z87.891 Personal history of nicotine dependence; E78.5 Hyperlipidemia, unspecified; N32.9 Bladder disorder, unspecified
CPT/HCPCS: 2NBSP; 36415; 36592; 71045; 74177; 76775; 80307; 81001; 82436; 87070; 87147; 87449; 87450; 87804; 87804-59; 88305; 93005; 93010; 96374; J0456; J0696; J2920; J2930; J3490; J7060

== ENCOUNTER → 2017-07-29 | Day surgery (SDC) | payer OTHER ==
[~2017-07-29] VITALS: Ht 170.2 cm; Wt 112.5 kg
[~2017-07-29] MED LIST: ASPIRIN325 M2 PO; AUGMENTIN 875-1 EACH PO; CRESTOR10 M1 PO; LISINOPRIL5 M1 PO; LOSARTAN POTASS25 M1 PO; PREDNISONE10 M2 PO; PROAIR HFA8.5 GM INH; SPIRIVA18 MCG INH; SYMBICORT 16010.2 GM INH; TOPROL XL25 M1 PO
--- NOTE | 2017-07-29 19:02 | Operative Report ---
Operative/Inv Procedure Report Surgery Date: 07/29/17 Name of Procedure: TURBT (LARGE) WITH RESECTION OF RIGHT URETER ORIFICE. MITOMYCIN 40MG INSTILLATION IN RR. Pre-Operative Diagnosis: LARGE BLADDER MASS WITH GROSS HEMATURIA Post-Operative Diagnosis: SAME Estimated Blood Loss: 50ml to 100ml Surgeon/Ambulatory Technologist: Ishaan Elaine MD Anesthesia: laryngeal mask airway Drains: 18FR GOMEZ-USED IN RR FOR MITOMYCIN INSTILLATIO X 1.5 HOURS. Specimens: BLADDER TUMOR, BASE/ORIFICE OF TUMOR Complications: NONE Condition: IMPROVED Operative/Procedure Note Note: The patient was taken to the operating room, and placed on the OR table in supine position. Timeout was performed, with the patient awake, to confirm correct patient, procedure, anesthesia, antibiotics, and other pertinent hermelindo- operative information. After adequate anesthesia and antibiotics, the patient was then placed in lithotomy stirrups, draped and prepped in usual surgical fashion. A 26 Swedish resectoscope sheath with a 30 angle lens, and 24 Swedish loop, was inserted into the urethra, and advanced into the bladder without difficulty. Upon entering the bladder, the bladder was noted to be mildly trabeculated. The left ureteral orifice was clearly visible, with clear yellow reflux. A very large papillary bladder tumor was immediately of on the right side of the bladder. Despite thorough and systematic surveillance, I was unable to identify the right ureteral orifice, suspecting that this tumor has involved the orifice. A solitary 5 Cm papillary lesion was visualized on the right side Of the bladder, consistent with tumor. No other tumors were seen on thorough and systematic surveillance. Under direct visualization, this 5 cm papillary lesion was resected from superficial to deeper layers, including partial detrusor muscle base resection. The right ureteral orifice was never identified after resection as it was involved with this papillary lesion. The entire tumor was removed, along with a 0.5 cm margin of normal mucosa. The tumor fragments were Ellix evacuated, and sent to pathology. Spot cauterization of the base of the tumor resection, was performed, in order to achieve good hemostasis. The bladder was copiously irrigated once again with 3 L of sorbitol. The resectoscope was removed, leaving the bladder full. The bladder was drained by placing an 18 Swedish Gomez catheter, without difficulty, and draining clear fluid. 10 mL of sterile water was placed in the balloon, and the Gomez catheter was plugged after complete decompression of the bladder. All sponge needle and instrument count were correct at the end of the case. The patient tolerated procedure well was then taken to recovery room in satisfactory condition. In the recovery room, Mitomycin 40mg in 40cc sterile saline, was instilled into the bladder using the indwelling 18fr catheter. The Gomez was clamped, for one hour, with the pt. turned from [id number] every 15minutes, during mitomycin instillation. The patient tolerated this part of the procedures well, the catheter was removed for the pt. to void. The patient tolerated both procedures well and discharged withpain meds, and antibiotics. The patient is scheduled for follow-up in the office in 2 weeks time. Findings: 5CM PAPILLARY TUMOR WITH WIDE STALK OVERLYING RIGHT ORIFICE-REQUIRED RESECTION Discharge Disposition: PACU CC: Ishaan Elaine MD
== END ==
LOC: STS 01:23
DX: C67.8 Malignant neoplasm of overlapping sites of bladder (principal); N32.89 Other specified disorders of bladder; I10 Essential (primary) hypertension; J44.9 Chronic obstructive pulmonary disease, unspecified; Z87.891 Personal history of nicotine dependence; I25.10 Atherosclerotic heart disease of native coronary artery without angina pectoris; I25.2 Old myocardial infarction
CPT/HCPCS: J0131; J1720; J2250; J9280